=== PATIENT | male | born 1975 | race African-American/Black ===

== ENCOUNTER 2021-02-01 06:31 | Day surgery (SDC) | payer OTHER ==
[~2021-02-01] VITALS: Ht 182.9 cm; Wt 105.5 kg
[~2021-02-01 06:31] MED LIST: ACETAMINOPHEN 500 MG TABLET PO PRN; AMLO-187 PO; HYDROmorphone 2 MG/ML VIAL IVP PRN; IV RINGERS,LACTATED 1000ML 1,000 ML IV SCH; MELO15TA23 PO; METH2.5T PO; MORPHINE SULFATE 2 MG/ML INJ. IVP PRN; PRED2.5T PO; PROCHLORPERAZINE 10 MG/2 ML VIAL. IVP PRN; VALS320T2 PO; fentaNYL PF VIAL 100 MCG/2 ML VIAL IVP PRN
[2021-02-01] MEDS ORDERED: ROCURONIUM 50 MG/5 ML VIAL. ONE (06:38)
[2021-02-01] MEDS ORDERED: LIDOCAINE 2% PF 5 ML VIAL. ONE (06:38)
[2021-02-01] MEDS ORDERED: ONDANSETRON PF 4 MG/2 ML VIAL. ONE (06:38)
[2021-02-01] MEDS ORDERED: DEXAMETHASONE SOD PHOS 4 MG/ML VIAL ONE (06:38)
[2021-02-01] MEDS ORDERED: PROPOFOL 10 MG/ML (20ML) VIAL. IV ONE (06:38)
[2021-02-01 06:48] VITALS: BP 131/74
[2021-02-01] MEDS ORDERED: BUPIVACAINE-EPI 0.25%-1:200000 MPF 30 ML VIAL. ONE (07:39)
[2021-02-01] MEDS ORDERED: MINERAL OIL for SURGERY 10 ML VIAL. MC ONE (07:39)
[2021-02-01] MEDS ORDERED: fentaNYL PF VIAL 100 MCG/2 ML VIAL ONE ×2 (07:45→10:07)
[2021-02-01] MEDS ORDERED: KETOROLAC 30 MG/ML VIAL. ONE (07:58)
[2021-02-01] MEDS ORDERED: SEVOFLURANE 61 TO 120 MINUTES. IH ONE (07:58)
[2021-02-01] MEDS ORDERED: NEOSTIGMINE METHYLSULFATE 5 MG/5 ML SYRINGE. ONE (08:33)
[2021-02-01] MEDS ORDERED: GLYCOPYRROLATE 1 MG/5 ML VIAL. ONE (08:33)
[2021-02-01] MEDS ORDERED: PHENYLEPHRINE in 0.9% NACL PF 1 MG/10 ML SYRINGE. IV ONE (08:35)
--- NOTE | 2021-02-01 09:19 | PDOC4 ---
Operative Note Operative Note Date: February 01, 2021 at 914 Preoperative diagnosis: Left inguinal hernia possible right inguinal hernia Postoperative diagnosis: Left inguinal hernia Procedure: Robotic assisted laparoscopic left inguinal hernia repair with mesh Surgeon: Andrea Specimen: None Dictation: Patient is 45-year-old male with complaints of a painful bulge in his left groin he had previously had a right inguinal hernia repaired and ultrasound was showing a possible right inguinal hernia recurrence. Procedure of robotic assisted laparoscopic inguinal hernia repair with mesh was explained to the bianca geller in detail risk benefits were also discussed including bleeding infection injury to intra-abdominal contents possible necessitating further open operations alternatives to this procedure also discussed with patient who seemed to understand and gave both verbal and written consent to have the procedure performed. Patient was taken to the operating room placed in the supine pos ition general anesthesia was initiated once patient was sleeping intubated he was placed in the low lithotomy positioning and his abdomen was prepped and draped usual sterile fashion using ChloraPrep. Area just above his umbilicus was injected with quarter percent Marcaine with epinephrine incision was made 11 blade scalpel and a varies needle was placed within the abdomen creating pneumoperitoneum once this was complete 8 mm da Melody port was placed in a millimeter da Melody camera was placed within the abdomen which was inspected definitely noted a incarcerated left inguinal hernia the right side appeared to be normal with no evidence of a hernia defect. 8 mm da Melody port was placed in the left midabdomen and one in the right midabdomen da Melody robot was brought and docked all port sites surgeon went to the robotic console using a grasper and Endo Noah scissors the incarcerated omentum within the hernia defect was reduced incision was made in the peritoneum and a flap propagated inferiorly reducing the hernia sac. A large Bard 3D max mesh for the left side was placed over the floor of the groin covering the hernia defect and the peritoneum was closed with a running 2 OV lock durable suture. There was a hole in the peritoneum this was also closed with a 2 OV lock absorbable suture. Sutures were then removed from the abdomen. The da Melody robot was undocked from all port sites all ports were removed the pneumoperitoneum was reduced all port sites were closed with 4 subcuticular Monocryl Mastisol Steri-Strips and island dressings were applied. Patient was awakened and extubated in the operating room taken to recovery in stable condition all sponge instrument needle counts listed as correct estimated blood loss 5 mL RENZO BERMUDEZ MD Feb 01, 2021 09:19
--- NOTE | 2021-02-01 09:27 | DISCH ---
DISCHARGE INSTRUCTIONS Condition on Discharge Condition on Discharge: Stable Activity After Discharge Activity Instructions for Disc: Avoid exertion Diet after Discharge Diet after Discharge: Regular Wound Incision Care Other wound/incision instructi: May shower in 24 hours Contacting the after DC Call your doctor for: If your condition worsens Follow-Up Follow up with: Dr. Bermudez in 2 weeks RENZO BERMUDEZ MD Feb 01, 2021 09:27
[2021-02-01 10:15] VITALS: BP 136/81
== END 2021-02-01 10:47 | disposition home or self-care (01) ==
LOC: SURG 06:31 → EEVIPCON 08:00 → SURG 10:47
PROVIDERS: ATTEND Surgery
DX: K40.30 Unilateral inguinal hernia, with obstruction, without gangrene, not specified as recurrent (principal); I10 Essential (primary) hypertension; M19.90 Unspecified osteoarthritis, unspecified site; Z79.899 Other long term (current) drug therapy; Z98.890 Other specified postprocedural states
CPT/HCPCS: 49650; J0690; J1100; J1885; J2370; J2405; J2704; J2710; J3010; J3490; S2900; A4364; A4657; A4930; A6219; C1781